=== PATIENT | male | born 1990 | race African-American/Black ===

== ENCOUNTER 2023-06-14 11:03 | Emergency (ER) | payer OTHER, MEDICAID ==
[~2023-06-14] VITALS: Ht 175.3 cm; Wt 81.8 kg
[2023-06-14 11:13] VITALS: O2SAT 99
[2023-06-14 11:34] LABS: BASOPHILS % 0.7 % (0.0-2.0); EOSINOPHILS % 3.1 % (0.0-5.0); HEMOGLOBIN. 16.9 g/dL (14.0-18.0); LYMPHOCYTES % 32.4 % (20.0-50.0); MEAN CORPUSCULAR HEMOGLOBIN 31.5 pg (28.0-32.0); MEAN CORPUSCULAR HGB CONC 34.6 g/dL (31.0-37.0); MEAN CORPUSCULAR VOLUME 90.9 fL (80.0-94.0); MEAN PLATELET VOLUME 8.9 fl (7.4-10.4); MONOCYTES % 10.2 % (2.0-8.0); NEUTROPHILS % 53.6 % (40.0-76.0); PLATELET 243 x1000/uL (130-400); RED BLOOD CELL COUNT 5.38 mill/uL (4.7-6.1); RED CELL DISTRIBUTION WIDTH 12.7 % (11.6-14.6); WHITE BLOOD COUNT 4.6 x1000/uL (4.5-11.0)
[2023-06-14 11:59] LABS: ALANINE AMINOTRANSFERASE 39 IU/L (10-49); ALBUMIN 4.9 g/dL (3.2-4.8); ASPARTATE AMINOTRANSFERASE 35 IU/L (<34); BILIRUBIN TOTAL 0.6 mg/dL (0.1-1.0); CALCIUM 9.5 mg/dL (8.7-10.4); CARBON DIOXIDE 27 mEq/L (21-32); CHLORIDE 105 mEq/L (98-107); CREATININE 1.4 mg/dL (0.6-1.3); GLUCOSE 91 mg/dL (70-105); POTASSIUM 4.3 mEq/L (3.5-5.1); PROTEIN TOTAL 7.4 g/dL (6.0-8.3); SODIUM 138 mEq/L (136-145); UREA NITROGEN BLOOD 11 mg/dL (9-23)
[2023-06-14] MEDS ORDERED: KETOROLAC 60MG/2ML VIAL IM ONE (12:00)
[2023-06-14 15:46] LABS: CLARITY URINE CLEAR (CLEAR); COLOR URINE YELLOW (YELLOW); GLUCOSE URINE NEGATIVE (NEGATIVE); KETONES URINE NEGATIVE (NEGATIVE); LEUKOCYTE ESTERASE URINE NEGATIVE (NEGATIVE); NITRITE URINE NEGATIVE (NEGATIVE); OCCULT BLOOD URINE NEGATIVE (NEGATIVE); PROTEIN URINE NEGATIVE (NEGATIVE); SPECIFIC GRAVITY URINE 1.013 (1.005-1.030); UROBILINOGEN URINE 0.2 E.U./dL (0.2-1.0)
[2023-06-14] MEDS: KETOROLAC 60MG/2ML VIAL IM NR (15:46)
[2023-06-14 16:17] VITALS: BP 146/95; PULSE 65; RESP 16; TEMP 98.5
== END 2023-06-14 16:25 | disposition home or self-care (01) ==
LOC: ER 12:46
DX: R51.9 Headache, unspecified (principal); R10.9 Unspecified abdominal pain; J45.909 Unspecified asthma, uncomplicated; Z98.890 Other specified postprocedural states
CPT/HCPCS: 80053; 81003; 83690; 85025; 36415; 70450; 74176; 96372; 99285; J1885; Z7610

== ENCOUNTER 2024-12-14 06:36 | Emergency (ER) | payer MEDICAID, OTHER ==
[~2024-12-14] VITALS: Ht 175.3 cm; Wt 77.2 kg
[2024-12-14 06:42] VITALS: O2SAT 100
[2024-12-14 06:44] VITALS: BP 136/90; PULSE 82; RESP 18; TEMP 36.5; O2SAT 99
[2024-12-14] MEDS ORDERED: ACETAMINOPHEN 1000MG/100ML 100 ML IV ONE (07:00)
[2024-12-14] MEDS ORDERED: LACTATED RINGERS 1,000 ML IV SCH (07:00)
[2024-12-14] MEDS ORDERED: METOCLOPRAMIDE HCL 10MG/2ML VIAL IV ONE (07:00)
[2024-12-14 07:20] LABS: BASOPHILS % 0.6 % (0.0-2.0); EOSINOPHILS % 1.7 % (0.0-5.0); HEMATOCRIT. 44.2 % (42.0-52.0); HEMOGLOBIN. 14.7 g/dL (14.0-18.0); LYMPHOCYTES % 32.9 % (20.0-50.0); MEAN PLATELET VOLUME 8.2 fl (7.4-10.4); MONOCYTES % 8.8 % (2.0-8.0); NEUTROPHILS % 56.0 % (40.0-76.0); PLATELET 285 x1000/uL (130-400); RED BLOOD CELL COUNT 4.86 mill/uL (4.7-6.1); RED CELL DISTRIBUTION WIDTH 13.1 % (11.6-14.6)
[2024-12-14 07:27] LABS: CREATININE 1.5 mg/dL (0.6-1.3); UREA NITROGEN BLOOD 19 mg/dL (9-23)
== END 2024-12-14 07:15 | disposition left against medical advice (07) ==
LOC: ER 06:36
DX: G43.909 Migraine, unspecified, not intractable, without status migrainosus (principal); I10 Essential (primary) hypertension; J45.909 Unspecified asthma, uncomplicated; Z79.899 Other long term (current) drug therapy
CPT/HCPCS: 36415; 80048; 85025; 99283; J0131